=== PATIENT | female | born 1960 | race Caucasian/White ===

== ENCOUNTER 2022-07-21 10:55 | Day surgery (SDC) | payer BC ==
[2022-07-20 13:54] VITALS: BMI 35.6
[~2022-07-21 10:55] MED LIST: EPINEPHrine 0.3 MG in Ophthalmic Irrigation Solution 500 ML IRR SCH; Midazolam HCl 2 mg/2 ml Vial ONE; PROPOFOL 20 ML ONE; fentaNYL PF 100 MCG/2 ML SYRINGE ONE
[2022-07-21] MEDS ORDERED: Cyclopentolate 1% Opth Drop 2 ML BOT ONE (11:46)
[2022-07-21] MEDS ORDERED: Phenylephrine 2.5% Ophth Soln 5 ML BOT ONE (11:46)
[2022-07-21] MEDS ORDERED: Bupivacaine 0.75% 10 ML VIAL ONE (13:09)
[2022-07-21] MEDS ORDERED: CEFAZOLIN 1 GM VIAL ONE (13:09)
[2022-07-21] MEDS ORDERED: Triamcinolone 40 MG/ML VIAL ONE (13:09)
[2022-07-21] MEDS ORDERED: Lidocaine 1% PF 5 ML VIAL ONE (13:09)
[2022-07-21] MEDS ORDERED: Lidocaine 4% PF 5 ML AMP ONE (13:09)
[2022-07-21] MEDS ORDERED: Maxitrol 0.1% Opth Oint 3.5 GM TUBE ONE (13:09)
== END 2022-07-21 14:36 | disposition home or self-care (01) ==
LOC: SDC 10:55
PROVIDERS: ATTEND Ophthalmology Retina Specialist
PROC: 08T53ZZ Resection of Left Vitreous, Percutaneous Approach (ICD-10-PCS; principal; 2022-07-21)
DX: H33.022 Retinal detachment with multiple breaks, left eye (principal); Z79.82 Long term (current) use of aspirin; Z79.899 Other long term (current) drug therapy; Z88.2 Allergy status to sulfonamides; Z98.49 Cataract extraction status, unspecified eye; Z96.1 Presence of intraocular lens
CPT/HCPCS: 67025; J0171; J0690; J2250; J2704; J3301; J3490